=== PATIENT | male | born 1955 | race Hispanic/Latino ===

== ENCOUNTER 2023-01-10 06:17 | Day surgery (SDC) | payer OTHER, BC ==
--- NOTE | 2023-01-07 09:00 | RAD REPORT ---
EXAM DESCRIPTION: RAD - Chest Pa And Lat (2 Views) - 01/07/2023 8:41 am CLINICAL HISTORY: pre op for surgery Chest pain. COMPARISON: Chest Pa And Lat (2 Views) dated 09/15/2020; CHEST SINGLE VIEW dated 10/02/2012 FINDINGS: The lungs are clear. The heart is normal in size. No displaced fractures. IMPRESSION: No acute or concerning finding suspected.
[2023-01-07 09:20] LABS: Absolute Lymphocytes (CBC) 1.8 K/uL (0.7-4.9); Hematocrit 41.6 % (39.6-49.0); Lymphocytes % 28.6 % (15.3-44.8); MCV 83.9 fL (80-100); MPV 9.5 fL (7.6-11.3); RBC Red Blood Cell Count 4.95 M/uL (4.33-5.43)
[2023-01-07 09:35] LABS: Potassium 4.1 mmol/L (3.5-5.1)
[2023-01-07 10:01] LABS: Blood Morphology Comment NOT SEEN (NOT SEEN); Platelet Estimate ADEQ; White Blood Cell Scan OK (OK)
--- NOTE | 2023-01-07 16:18 | EKG ---
Test Date: 2023-01-07 Test Time: 08:10:39 [employer] Insurance Sales Agent: [employer] MEASUREMENT RESULTS: Intervals: Rate: 58 [place]: 150 QRSD: 122 QT: 426 QTc: 418 [place]: P: 47 [place]: 150 QRS: -45 T: 12 INTERPRETIVE STATEMENTS: Sinus bradycardia Left anterior fascicular block Left ventricular hypertrophy with QRS widening Possible Anteroseptal infarct, age undetermined Abnormal ECG Compared to ECG 10/02/2012 06:18:47 Myocardial infarct finding now present Sinus rhythm no longer present Electronically Signed On 01-07-23 16:16:39 [employer] by Ananda Burgos
[2023-01-10] MEDS ORDERED: Ringers Lactate 1,000 ML IV ONE (06:51)
[2023-01-10] MEDS ORDERED: LIDOCAINE 1% MPF 5 ML VIAL ONE (07:43)
[2023-01-10] MEDS ORDERED: propofoL 200 MG/20 ML VIAL IV ONE (07:43)
[2023-01-10 08:35] VITALS: TEMP 97.6
[2023-01-10 08:36] VITALS: O2SAT 96
[2023-01-10 08:39] VITALS: BP 124/76
== END 2023-01-10 08:40 | disposition home or self-care (01) ==
LOC: OR 06:17
PROVIDERS: ATTEND Surgery
PROC: 0DJD8ZZ Inspection of Lower Intestinal Tract, Via Natural or Artificial Opening Endoscopic (ICD-10-PCS; principal; 2023-01-10 07:30)
DX: Z12.11 Encounter for screening for malignant neoplasm of colon (principal); K57.30 Diverticulosis of large intestine without perforation or abscess without bleeding; K64.4 Residual hemorrhoidal skin tags
CPT/HCPCS: 93005; 85025; 80048; 36415; 71046; J2704; J2001; J7120; G0121